=== PATIENT | male | born 1985 | race Caucasian/White ===

== ENCOUNTER 2017-02-22 18:29 | Emergency (ER) | payer MEDICAID ==
--- NOTE | 2017-02-22 18:53 | ED PDOC ---
Arrival/HPI - General Chief Complaint: Cough, Cold, Congestion Time Seen by Provider: 02/22/17 18:46 Historian: Patient - History of Present Illness Narrative History of Present Illness (Text): 02/22/17 18:48 31yo male with no PMhx who present with 4days history of nonproductive cough, nasal congestion and sore throat. States he took Nyquil yesterday. Complaining of facial pressure. Denies fever, chills, chest pain, sick contact, any other complaint. Past Medical History - Provider Review Nursing Documentation Reviewed: Yes - Infectious Disease Hx of Infectious Diseases: None - Psychiatric Hx Substance Use: No - Anesthesia Hx Anesthesia: No Family/Social History - Physician Review Nursing Documentation Reviewed: Yes Family/Social History: Unknown Family HX Smoking Status: Current Some Days Smoker Hx Alcohol Use: Yes Frequency of alcohol use: Socially Hx Substance Use: No Allergies/Home Meds Allergies/Adverse Reactions: Allergies No Known Allergies Allergy (Verified 02/22/17 18:38) Review of Systems - Physician Review All systems were reviewed & negative as marked: Yes - Review of Systems Constitutional: Normal Eyes: Normal ENT: Sore Throat, Rhinorrhea Respiratory: Cough Cardiovascular: Normal Gastrointestinal: Normal Genitourinary Male: Normal Musculoskeletal: Normal Skin: Normal Neurological: Normal Endocrine: Normal Hemo/Lymphatic: Normal Psychiatric: Normal Physical Exam Vital Signs Reviewed: Yes Temperature: Afebrile Blood Pressure: Normal Pulse: Regular Respiratory Rate: Normal Appearance: Positive for: Well-Appearing, Non-Toxic, Comfortable Pain Distress: None Mental Status: Positive for: Alert and Oriented X 3 - Systems Exam Head: Present: Atraumatic, Normocephalic Pupils: Present: PERRL Extroacular Muscles: Present: EOMI Conjunctiva: Present: Normal Mouth: Present: Moist Mucous Membranes Pharnyx: Present: ERYTHEMA. No: EXUDATE, TONSILS ENLARGED, Peritonsilar Swelling, Uvular Deviation, Muffled/Hoarse Voice, Strider Nose (Internal): Present: Normal Inspection Neck: Present: Normal Range of Motion Respiratory/Chest: Present: Clear to Auscultation, Good Air Exchange. No: Respiratory Distress, Accessory Muscle Use, Wheezes, Decreased Breath Sounds, Rales, Retracting, Rhonchi Cardiovascular: Present: Regular Rate and Rhythm, Normal S1, S2. No: Murmurs Abdomen: Present: Normal Bowel Sounds. No: Tenderness, Distention, Peritoneal Signs Back: Present: Normal Inspection Upper Extremity: Present: Normal Inspection. No: Cyanosis, Edema Lower Extremity: Present: Normal Inspection. No: Edema Neurological: Present: GCS=15, CN II-XII Intact, Speech Normal Skin: Present: Warm, Dry, Normal Color. No: Rashes Psychiatric: Present: Alert, Oriented x 3, Normal Insight, Normal Concentration Disposition/Present on Arrival - Present on Arrival Any Indicators Present on Arrival: No History of DVT/PE: No History of Uncontrolled Diabetes: No Urinary Catheter: No History of Decub. Ulcer: No History Surgical Site Infection Following: None - Disposition Have Diagnosis and Disposition been Completed?: Yes Diagnosis: URI (upper respiratory infection) Disposition: HOME/ ROUTINE Disposition Time: 18:50 Patient Plan: Discharge Condition: STABLE Discharge Instructions (ExitCare): Upper Respiratory Infection (ED) Additional Instructions: Drink plenty of fluid and rest follow up with the clinic Return to ED for any new or worsening symptoms Prescriptions: Amoxicillin [Amoxil 500 mg Cap] 500 mg PO BID #14 cap Benzonatate [Tessalon Perles] 100 mg PO TID #30 sgl Loratadine/Pseudoephedrine [Claritin-D 24 Hour Tablet] 1 each PO DAILY #30 tab.er.24h Referrals: [facility] [place] [facility] [place] - Follow up with primary
[2017-02-23 12:02] VITALS: BMI 25.5
[2017-02-23 12:04] VITALS: BP 108/72; PULSE 74; RESP 16; O2SAT 98
== END 2017-02-22 19:13 | disposition home or self-care (01) ==
LOC: ED 18:29
DX: J06.9 Acute upper respiratory infection, unspecified (principal); Z72.0 Tobacco use

== ENCOUNTER 2017-05-05 20:09 | Emergency (ER) | payer MEDICAID ==
[2017-05-05 20:09] VITALS: BMI 25.5
[2017-05-05 20:30] VITALS: BP 98/65; PULSE 80; RESP 18; TEMP 97.9; O2SAT 100
--- NOTE | 2017-05-05 21:35 | ED PDOC ---
Arrival/HPI - General Chief Complaint: ENT Problem Time Seen by Provider: 05/05/17 21:11 Historian: Patient - History of Present Illness Narrative History of Present Illness (Text): The patient is a 31yo male, presents to the emergency department for evaluation of dry cough adn sore throat present for the past day. Pt also reports a tactile fever yesterday but denies any fever today. States he took OTC cough medications as well at Tylenol for his symptoms with some relief. He denies any chest pain, shortness of breath, headaches and offers no additional medical complaints. Past Medical History - Provider Review Nursing Documentation Reviewed: Yes - Travel History Have you recently traveled outside [place] w/in the past 3 mons?: No - Infectious Disease Hx of Infectious Diseases: None - Psychiatric Hx Substance Use: No - Anesthesia Hx Anesthesia: No Family/Social History - Physician Review Nursing Documentation Reviewed: Yes Family/Social History: Other (non-contributing) Smoking Status: Current Some Days Smoker Hx Alcohol Use: Yes Hx Substance Use: No Allergies/Home Meds Allergies/Adverse Reactions: Allergies No Known Allergies Allergy (Verified 02/22/17 18:38) Review of Systems - Review of Systems Constitutional: Fevers (tactile) ENT: Sore Throat Respiratory: Cough. absent: SOB, Sputum Cardiovascular: absent: Chest Pain Neurological: absent: Headache Physical Exam Vital Signs Reviewed: Yes Vital Signs Temp Pulse Resp BP Pulse Ox 05/05/17 20:29 97.9 F 80 18 98/65 L 100 Appearance: Positive for: Well-Appearing, Non-Toxic, Comfortable Pain Distress: None Mental Status: Positive for: Alert and Oriented X 3 - Systems Exam Head: Present: Atraumatic Pupils: Present: PERRL Ears: Present: NORMAL TM Mouth: Present: Moist Mucous Membranes Pharnyx: Present: ERYTHEMA (cobblestoning). No: EXUDATE, TONSILS ENLARGED, Peritonsilar Swelling, Uvular Deviation, Muffled/Hoarse Voice, Soft Palate/ Uvular Edema Neck: Present: Normal Range of Motion. No: MIDLINE TENDERNESS Respiratory/Chest: Present: Clear to Auscultation. No: Respiratory Distress, Accessory Muscle Use Cardiovascular: Present: Regular Rate and Rhythm Neurological: Present: GCS=15, CN II-XII Intact Skin: Present: Warm, Dry. No: Rashes Psychiatric: Present: Alert, Oriented x 3 - Scribe Statement The provider has reviewed the documentation as recorded by the Kadieibe Zabrina Pinto Provider Scribe Attestation: All medical record entries made by the Kadieibe were at my direction and personally dictated by me. I have reviewed the chart and agree that the record accurately reflects my personal performance of the history, physical exam, medical decision making, and the department course for this patient. I have also personally directed, reviewed, and agree with the discharge instructions and disposition. Disposition/Present on Arrival - Present on Arrival Any Indicators Present on Arrival: No History of DVT/PE: No History of Uncontrolled Diabetes: No Urinary Catheter: No History of Decub. Ulcer: No History Surgical Site Infection Following: None - Disposition Have Diagnosis and Disposition been Completed?: Yes Diagnosis: Upper respiratory infection Disposition: HOME/ ROUTINE Disposition Time: 21:15 Condition: GOOD Discharge Instructions (ExitCare): Upper Respiratory Infection (ED) Additional Instructions: Please follow up with your doctor. Return to the ER for any worsening symptoms, difficulty breathing, neck stiffness, fever lasting longer than a week, or for any other concerns. Prescriptions: Promethazine [Phenergan Syrup] 12.5 mg PO Q12H PRN #10 dose PRN Reason: Cough [place] [facility] [place] [facility] [place] - Follow up with primary Forms: [employer] (Kosovan)
== END 2017-05-05 21:51 | disposition home or self-care (01) ==
LOC: ED 20:09
DX: J06.9 Acute upper respiratory infection, unspecified (principal); F17.210 Nicotine dependence, cigarettes, uncomplicated

== ENCOUNTER 2017-08-22 02:36 | Emergency (ER) | payer MEDICAID ==
[2017-08-22 02:37] VITALS: BMI 25.5
[2017-08-22 02:48] VITALS: BP 109/69; PULSE 89; RESP 18; TEMP 98.3; O2SAT 100
--- NOTE | 2017-08-22 03:14 | ED PDOC ---
Arrival/HPI - General Chief Complaint: Trauma Time Seen by Provider: 08/22/17 02:43 Historian: Patient - History of Present Illness Narrative History of Present Illness (Text): 08/22/17 03:09 Ramirez Corbin is a 32 year old male who presents to the Emergency department status post fall 2 days prior. Patient states he fell on to his back 2 days ago and is now experiencing lower back pain and right shoulder/arm pain. Patient denies any decrease range of motion, numbness/weakness/tingling in the extremities, head trauma, loss of consciousness, neck pain, headache, dizziness , or any other complaints. Patient able to ambulate without difficulty. Time/Duration: < week (2 days ) Symptom Onset: Gradual Symptom Course: Unchanged Activities at Onset: Light Context: Standing Past Medical History - Provider Review Nursing Documentation Reviewed: Yes - Infectious Disease Hx of Infectious Diseases: None - Psychiatric Hx Substance Use: No - Anesthesia Hx Anesthesia: No Family/Social History - Physician Review Nursing Documentation Reviewed: Yes Family/Social History: Unknown Family HX Smoking Status: Current Some Days Smoker Hx Alcohol Use: Yes Frequency of alcohol use: Socially Hx Substance Use: No Allergies/Home Meds Allergies/Adverse Reactions: Allergies No Known Allergies Allergy (Verified 08/22/17 02:52) Review of Systems - Physician Review All systems were reviewed & negative as marked: Yes - Review of Systems Constitutional: Normal. absent: Fevers Eyes: Normal ENT: Normal Respiratory: Normal. absent: SOB, Cough Cardiovascular: Normal. absent: Chest Pain Gastrointestinal: Normal. absent: Abdominal Pain, Diarrhea, Nausea, Vomiting Genitourinary Male: Normal. absent: Dysuria, Frequency, Hematuria, Urinary Output Changes Musculoskeletal: Arthralgias (+right shoulder pain), Back Pain. absent: Neck Pain Skin: Normal. absent: Rash Neurological: Normal. absent: Headache, Dizziness Endocrine: Normal Hemo/Lymphatic: Normal Psychiatric: Normal Physical Exam Vital Signs Reviewed: Yes Vital Signs Temp Pulse Resp BP Pulse Ox 08/22/17 02:47 98.3 F 89 18 109/69 100 Temperature: Afebrile Blood Pressure: Normal Pulse: Regular Respiratory Rate: Normal Appearance: Positive for: Well-Appearing, Non-Toxic, Comfortable Pain Distress: None Mental Status: Positive for: Alert and Oriented X 3 - Systems Exam Head: Present: Atraumatic, Normocephalic Pupils: Present: PERRL Extroacular Muscles: Present: EOMI Conjunctiva: Present: Normal Mouth: Present: Moist Mucous Membranes Neck: Present: Normal Range of Motion. No: Meningeal Signs, MIDLINE TENDERNESS , Paraspinal Tenderness Respiratory/Chest: Present: Clear to Auscultation, Good Air Exchange. No: Respiratory Distress, Accessory Muscle Use Cardiovascular: Present: Regular Rate and Rhythm, Normal S1, S2. No: Murmurs Abdomen: Present: Normal Bowel Sounds. No: Tenderness, Distention, Peritoneal Signs Back: Present: Paraspinal Tenderness (Tenderness/spasms to right paralumbar region). No: CVA Tenderness, Midline Tenderness Upper Extremity: Present: Normal ROM (Full ROM), NORMAL PULSES, Neurovascularly Intact, Capillary Refill < 2s, Other (Slight discomfort with right shoulder abduction). No: Cyanosis, Edema, Tenderness, Swelling, Erythema, Temperature Abnormalties, Deformity Lower Extremity: Present: Normal Inspection. No: Edema Neurological: Present: GCS=15, CN II-XII Intact, Speech Normal, Motor Func Grossly Intact, Normal Sensory Function, Normal Cerebellar Funct, Gait Normal, Memory Normal Skin: Present: Warm, Dry, Normal Color. No: Rashes Psychiatric: Present: Alert, Oriented x 3, Normal Insight, Normal Concentration Medical Decision Making ED Course and Treatment: 08/22/17 03:09 Impression: 32 year old male presents s/p fall with lower back pain and right shoulder/arm pain 2 days prior. Differential Diagnosis included but are not limited to: contusion vs. sprain vs. fracture Plan: -- XR Right Lumbar Spine -- XR Right Shoulder -- XR Right Elbow -- Flexeril -- Toradol -- Reassess and disposition Progress Notes: 08/22/17 04:40 Reviewed radiology, XR Right Lumbar Spine shows no acute process, no fracture. XR Right Shoulder shows no acute process, no fracture. XR Right Elbow shows no acute process, no fracture. 08/22/17 04:47 On re-evaluation, patient feels better and is in no acute distress. I have discussed the results and plan with the patient, who expresses understanding. Patient in agreement with plan to be discharged home. Patient is stable for discharge. Patient was instructed to follow up with physician or return if symptoms worsen or new concerning symptoms arise. - RAD Interpretation Radiology Orders: 01/11/18 03:09 LS SPINE WITH OBL > 18 YRS OLD [RAD] Stat 08/22/17 03:10 SHOULDER RIGHT [RAD] Stat 08/22/17 03:11 ELBOW RIGHT 3 VIEWS ROUTINE [RAD] Stat Database Specialist: ED Physician - Medication Orders Current Medication Orders: Discontinued Medications Cyclobenzaprine HCl (Flexeril) 10 mg PO ONCE ONE Stop: 08/22/17 03:14 Last Admin: 08/22/17 04:00 Dose: 10 mg Ketorolac Tromethamine (Toradol) 60 mg IM ONCE ONE Stop: 08/22/17 03:14 Last Admin: 08/22/17 04:00 Dose: 60 mg MAR Pain Assessment Document 08/22/17 04:00 KAILA (Rec: 08/22/17 04:15 KAILA [id number]) Pain Reassessment Is this a pain reassessment? Yes Sleep Is patient sleeping during reassessment? No Location Upper or Lower Lower Pain Location Body Site Back Description Description Throbbing Pain Behavior Guarding Irritability IM Administration Charges Document 08/22/17 04:00 KAILA (Rec: 08/22/17 04:15 KAILA [id number]) Injection Site MAR Injection Site Left Gluteus Wang Charges for Administration # of IM Administrations 1 - Scribe Statement The provider has reviewed the documentation as recorded by the Shanta Anderson Provider Scribe Attestation: All medical record entries made by the Scribe were at my direction and personally dictated by me. I have reviewed the chart and agree that the record accurately reflects my personal performance of the history, physical exam, medical decision making, and the department course for this patient. I have also personally directed, reviewed, and agree with the discharge instructions and disposition. Disposition/Present on Arrival - Present on Arrival Any Indicators Present on Arrival: No History of DVT/PE: No History of Uncontrolled Diabetes: No Urinary Catheter: No History of Decub. Ulcer: No History Surgical Site Infection Following: None - Disposition Have Diagnosis and Disposition been Completed?: Yes Diagnosis: Low back strain, Shoulder strain, Muscle spasm Disposition: HOME/ ROUTINE Disposition Time: 04:43 Patient Plan: Discharge Patient Problems: Current Active Problems Problem Status Onset Low back strain Acute Muscle spasm Acute Shoulder strain Acute Condition: GOOD Discharge Instructions (ExitCare): Muscle Strain (ED), Muscle Spasm (ED) Additional Instructions: Rest/no strenuous physical activity/take meds as prescribed/follow up with your doctor this week Prescriptions: Cyclobenzaprine [Cyclobenzaprine HCl] 10 mg PO TID PRN #15 tab PRN Reason: Muscle Spasm Naproxen [Naprosyn] 500 mg PO BID PRN #14 tab PRN Reason: Pain Forms: [facility] ([place]an)
--- NOTE | 2017-08-22 08:27 | RAD ---
PROCEDURE: Radiographs of the Lumbar Spine. HISTORY: injury COMPARISON: No prior. FINDINGS: BONES: Normal alignment. No listhesis. No fracture. DISC SPACES: Unremarkable. OTHER FINDINGS: None. IMPRESSION: Unremarkable radiographs of the lumbar spine.
--- NOTE | 2017-08-22 08:28 | RAD ---
PROCEDURE: Radiographs of the Right Shoulder HISTORY: injury COMPARISON: No prior. FINDINGS: BONES: Normal. No fracture. JOINTS: Normal. Glenohumeral and acromioclavicular joints preserved. No osteoarthritis. SOFT TISSUES: Normal. OTHER FINDINGS: None. IMPRESSION: Normal radiographs of the right shoulder.
--- NOTE | 2017-08-22 08:29 | RAD ---
PROCEDURE: Radiographs of the right elbow. HISTORY: injury COMPARISON: No prior. FINDINGS: BONES: Normal. No fracture. JOINTS: Normal. No osteoarthritis. SOFT TISSUES: Normal. JOINT EFFUSION: None. OTHER FINDINGS: None. IMPRESSION: Unremarkable radiographs of the right elbow.
== END 2017-08-22 05:03 | disposition home or self-care (01) ==
LOC: ED 02:36
DX: S39.012A Strain of muscle, fascia and tendon of lower back, initial encounter (principal); S46.911A Strain of unspecified muscle, fascia and tendon at shoulder and upper arm level, right arm, initial encounter; W19.XXXA Unspecified fall, initial encounter; M62.838 Other muscle spasm
CPT/HCPCS: 72110; 73030; 73080; 96372; 99282; J1885